=== PATIENT | male | born 1965 | race Caucasian/White ===

== ENCOUNTER 2018-06-25 08:48 | Day surgery (SDC) | payer BC ==
[2018-06-24 12:09] VITALS: BMI 32.8
[~2018-06-25 08:48] MED LIST: LACTATED RINGERS 1,000 ML IV SCH; LIDOCAINE 1% 20 ML VIAL (10MG/ML) FOR IV START INTRADERMA PRN
[2018-06-25 09:51] VITALS: RESP 16; TEMP 97.3
[2018-06-25] MEDS ORDERED: PROPOFOL 10 MG/ML 20 ML VIAL IV ONE (10:19)
[2018-06-25] MEDS ORDERED: LIDOCAINE 1% INJ 10MG/ML (20 ML MDV) ONE (10:19)
--- NOTE | 2018-06-25 10:20 | P.GSHP ---
History of Present Illness H&P Date: 06/25/18 Chief Complaint: History of colon polyps This is a 52-year-old male who presents today for colonoscopy. Patient's previous history of colon polyps. Past Medical History Past Medical History: Cancer, CVA/TIA, Hyperlipidemia, Hypertension Additional Past Medical History / Comment(s): HX SKIN CA, NO RESIDUAL EFFECTS FROM CVA-2008 approx History of Any Multi-Drug Resistant Organisms: None Reported Past Surgical History: No Surgical Hx Reported Past Anesthesia/Blood Transfusion Reactions: No Reported Reaction Additional Past Anesthesia/Blood Transfusion Reaction / Comment(s): no hx blood transfusion Smoking Status: Never smoker - Past Family History Mother Family Medical History: No Reported History Medications and Allergies Home Medications Medication Instructions Recorded Confirmed Type Atorvastatin [Lipitor] 10 mg PO HS 03/24/15 06/25/18 History Lisinopril [Zestril] 20 mg PO QAM 03/24/15 06/25/18 History Metoprolol Tartrate [Lopressor] 100 mg PO BID 03/24/15 06/25/18 History NIFEdipine [Procardia XL] 90 mg PO QAM 03/24/15 06/25/18 History buPROPion XL [Wellbutrin XL] 150 mg PO BID 03/24/15 06/25/18 History Allergies Allergy/AdvReac Type Severity Reaction Status Date / Time No Known Allergies Allergy Verified 06/25/18 09:56 Surgical - Exam Vital Signs Temp Pulse Resp BP Pulse Ox 97.3 F L 55 L 16 117/65 96 06/25/18 09:48 06/25/18 09:48 06/25/18 09:48 06/25/18 09:48 06/25/18 09:48 - General well developed, well nourished, no distress - Eyes PERRL - ENT normal pinna - Neck no masses - Respiratory normal expansion - Cardiovascular Rhythm: regular - Abdomen Abdomen: soft, non tender Assessment and Plan Assessment: History: Polyps. We'll perform colonoscopy.
--- NOTE | 2018-06-25 10:37 | P.OP ---
Date of Procedure: 06/25/18 Preoperative Diagnosis: History of colon polyps Postoperative Diagnosis: Colonic polyps of right colon and transverse colon Procedure(s) Performed: Colonoscopy Anesthesia: MAC Surgeon: Martell Ring Pathology: other (Right and transverse colon polyps) Condition: stable Disposition: PACU Description of Procedure: The patient's placed on the endoscopy table in the lateral position. He received IV sedation. Digital rectal exam was performed which revealed no rebound. The prostate was symmetric without nodules. The flexible colonoscope was then placed patient anus and passed throughout the entire colon. The ileocecal valve lesions. The cecum was examined. This appeared normal. In the right colon there was a sessile polyp. This was removed with the cold forcep. Scope was then brought back into the proximal transverse colon there were several polyps seen was removed with snare. Scope was withdrawn the remainder of the transverse colon descending colon and sigmoid colon appeared normal. Scope was then brought back the rectum and this appeared normal. Scope was withdrawn for patient.
[2018-06-25 11:14] VITALS: BP 109/64; PULSE 55
== END 2018-06-25 11:43 | disposition home or self-care (01) ==
LOC: ORWHC2ENDO 08:48
PROVIDERS: ATTEND Surgery
DX: Z12.11 Encounter for screening for malignant neoplasm of colon (principal); D12.2 Benign neoplasm of ascending colon; D12.3 Benign neoplasm of transverse colon; Z86.010 Personal history of colon polyps; E78.5 Hyperlipidemia, unspecified; I10 Essential (primary) hypertension; F32.9 Major depressive disorder, single episode, unspecified; Z79.899 Other long term (current) drug therapy; Z86.73 Personal history of transient ischemic attack (TIA), and cerebral infarction without residual deficits; Z85.828 Personal history of other malignant neoplasm of skin
CPT/HCPCS: 88305; 45380; 45385; J2001; J2704

== ENCOUNTER → 2019-05-11 | Outpatient (CLI) | payer BC | END | disposition home or self-care (01) | LOC: LABWHC1 16:42 | PROVIDERS: ATTEND Urology | DX: C61 Malignant neoplasm of prostate (principal) | CPT/HCPCS: 36415; 84153 ==

== ENCOUNTER → 2019-11-20 | Outpatient (CLI) | payer BC | END | disposition home or self-care (01) | LOC: LABWHC1 12:44 | PROVIDERS: ATTEND Urology | DX: C61 Malignant neoplasm of prostate (principal) | CPT/HCPCS: 36415; 84153 ==

== ENCOUNTER → 2019-12-07 | Outpatient (CLI) | payer BC ==
--- NOTE | 2019-12-07 16:48 | XR ---
EXAMINATION TYPE: XR lumbosacral spine min 4V DATE OF EXAM: 12/07/2019 CLINICAL HISTORY: Prostate cancer TECHNIQUE: Frontal, lateral, and oblique images of the lumbar spine are obtained. COMPARISON: MRI lumbar spine 03/09/2011 FINDINGS: There are 5 lumbar type vertebral bodies identified. The lumbar spine shows satisfactory a lignment without evidence of acute fracture or dislocation. Vertebral body heights are within normal limits. There is no evidence of focal osteoblastic lesion. Multilevel facet arthropathy and anterior osteophytic spurring of the endplates. Mild disc space narrowing at L5-S1. The oblique images demonst rate no evidence of spondylolysis. No spondylolisthesis. 3 mm calcific densities overlapping the bilateral renal shadows may represent nephrolithiasis. IMPRESSION: 1. No evidence of osteoblastic lesion in the lumbar spine. 2. Multilevel degenerative disc disease and facet arthropathy. 3. 3 mm calcifications overlapping the bilateral renal shadows may represent nephrolithiasis.
== END | disposition home or self-care (01) ==
LOC: RADXRMAIN 08:03
PROVIDERS: ATTEND Urology
DX: M51.37 Other intervertebral disc degeneration, lumbosacral region (principal); M47.817 Spondylosis without myelopathy or radiculopathy, lumbosacral region; C61 Malignant neoplasm of prostate
CPT/HCPCS: 72110

== ENCOUNTER → 2020-05-30 | Outpatient (CLI) | payer BC | END | disposition home or self-care (01) | LOC: LABWHC1 11:24 | PROVIDERS: ATTEND Urology | DX: C61 Malignant neoplasm of prostate (principal) | CPT/HCPCS: 36415; 84153 ==

== ENCOUNTER → 2020-06-06 | Outpatient (CLI) | payer BC | END | disposition home or self-care (01) | LOC: RADMRIMAIN 06:52 | PROVIDERS: ATTEND Urology | DX: Z53.9 Procedure and treatment not carried out, unspecified reason (principal) ==

== ENCOUNTER → 2020-06-16 | Outpatient (CLI) | payer BC ==
--- NOTE | 2020-06-21 07:14 | MR ---
EXAMINATION TYPE: MR Prostate wo/w con DATE OF EXAM: 06/16/2020 COMPARISON: None. IMAGE QUALITY: Good. INDICATION: Prostate cancer. PSA: 1.4 ng/ml on May 30, 2010 Recent Biopsy and Date: May 23, 2019 Pathology Report (If Applicable): Adriel score 3+4 = 7, location not provided TECHNIQUE: Examination was performed using a 3T MRI without an endorectal coil. Multiparametric imaging was perf ormed with T2 mutliplanar sequences, axial diffusion weighted imaging and dynamic contrast enhanced i maging, utilizing 9.5 mL intravenous Gadavist gadolinium contrast. FINDINGS: There is no clinically significant cancer identified. PROSTATE VOLUME: 4.8 cm SI x 4.3 cm AP x 4.8 cm LR Vol= 51.9 cc PSA DENSITY: 0.03 ng/ml/cc Predicted PSA = 6.23 Peripheral zone appears within normal limits on DWI/ADC imaging. Central transitional zone shows overall heterogeneity without suspicious areas of diminished T2 signa l. Capsule is maintained. Seminal vesicles symmetric and felt within normal limits. No adjacent adenopat hy. Bladder not greatly distended, there is mild wall thickening and trabeculation. No suspicious groin hernia or adenopathy. Visualized osseous structures are intact. No suspicious bow el dilatation. IMPRESSION: A focus of clinically significant cancer is not identified. Highest Assessment Category: 1 MRI Stage: T1c N0 M0 based on review of pelvic images. False negative rates for MRI range from 5-20% depending on risk profile. Assessment Categories: 1 ? Very low (clinically significant cancer is highly unlikely to be present) 2 ? Low (clinically significant cancer is unlikely to be present) 3 ? Intermediate (the presence of clinically significant cancer is equivocal) 4 ? High (clinically significant cancer is likely to be present) 5 ? Very high (clinically significant cancer is highly likely to be present)
== END | disposition home or self-care (01) ==
LOC: RADMRIMAIN 09:40
PROVIDERS: ATTEND Urology
DX: C61 Malignant neoplasm of prostate (principal)
CPT/HCPCS: 72197; A9585

== ENCOUNTER → 2021-01-18 | Outpatient (CLI) | payer BC | END | disposition home or self-care (01) | LOC: LABWHC1 10:27 | PROVIDERS: ATTEND Urology | DX: C61 Malignant neoplasm of prostate (principal) | CPT/HCPCS: 36415; 84153 ==

== ENCOUNTER → 2021-02-24 | Outpatient (CLI) | payer BC | END | disposition home or self-care (01) | LOC: LABWHC1 13:57 | PROVIDERS: ATTEND Urology | DX: C61 Malignant neoplasm of prostate (principal) | CPT/HCPCS: 36415; 84153 ==

== ENCOUNTER → 2022-08-04 | Outpatient (CLI) | payer BC ==
--- NOTE | 2022-08-06 11:07 | MR ---
EXAMINATION TYPE: MR Prostate wo/w con DATE OF EXAM: 08/04/2022 9:12 AM COMPARISON: 06/08/2020. CLINICAL INDICATION:Male, 56 years old with history of C61 MALIGNANT NEOPLASM OF PROSTATE; TECHNIQUE: Multi-planar, multi-sequence imaging of the pelvis is performed prior to and following the uncomplicated administration of bolus intravenous gadolinium. CONTRAST: 9 Gadavist Interpretive Criteria: PI-RADS v2.1 SERUM PSA: 1.8 on 07/18/2022 1.4 on 09/28/2021 SURGICAL PATHOLOGY: * Negative biopsy on 07/03/2021. * Positive biopsy 05/18/2019 left lateral apex [place] total score 3+4 = 7 FINDINGS: Prostatic dimensions: 4.5 x 4.9 x 2.9 cm. "Bullet" Volume:41.85 (PSA density=0.04 ng/mL/mL) CENTRAL GLAND (Central and Transition Zones/CZ+TZ): Multiple bilateral, heterogenous appearing hypertrophic stromal nodules, without suspicious lesion. M edian lobe hypertrophy with protrusion into the base of the bladder. (PI-RADS 2) PERIPHERAL ZONE (PZ): Bilateral linear, indistinct wedgelike areas of low ADC, and low T2 signal, No evidence of masslike a bnormality, or localized perfusional hypervascularity, to further suggest a focus of clinically signi ficant prostate cancer. (PI-RADS 2) SEMINAL VESICLES (SV): Symmetric and unremarkable. PERIPROSTATIC TISSUES: Unremarkable. LYMPH NODES: No enlarged pelvic lymph node. REMAINING PELVIS: Bladder wall is within normal limits given distention. No abnormal free or organized intrapelvic fluid collection. No pathologic bowel dilation or mural thickening. Bilateral fat-containing inguinal hernias. OSSEOUS STRUCTURES: No suspicious osseous abnormality. IMPRESSION: 1. No specific features for high-risk prostate cancer. Maximum PI-RADS score: 2. 2. No suspicious osseous lesion. No lymphadenopathy. No evidence of prostate adenocarcinoma involving the periprostatic tissues.
== END | disposition home or self-care (01) ==
LOC: RADMRIMAIN 08:10
PROVIDERS: ATTEND Urology
DX: C61 Malignant neoplasm of prostate (principal)
CPT/HCPCS: 72197; A9585

== ENCOUNTER → 2023-08-23 | Outpatient (CLI) | payer BC | END | disposition home or self-care (01) | LOC: LABWHC1 10:16 | PROVIDERS: ATTEND Urology | DX: C61 Malignant neoplasm of prostate (principal) | CPT/HCPCS: 36415; 84153 ==

== ENCOUNTER → 2024-03-12 | Outpatient (CLI) | payer BC | END | disposition home or self-care (01) | LOC: LABWHC1 07:04 | PROVIDERS: ATTEND Urology | DX: C61 Malignant neoplasm of prostate (principal) | CPT/HCPCS: 36415; 84153 ==

== ENCOUNTER → 2024-05-29 | Outpatient (CLI) | payer BC ==
--- NOTE | 2024-05-29 17:26 | CA ---
Transthoracic Echo Report Name: Soto Kwan Age: 58 Gender: M : 1965 Exam Date: 05/29/2024 15:41 Exam Location: [facility] Ht (in): 67 Wt (lb): 200 Ordering Physician: Doc Valera DO Attending/Referring Phys: Kassie Pryor NPC Client Reporting Associate Tonya Oneill RDCS Procedure CPT: Indications: R01.1 Murmur Cardiac Hx: Technical Quality: Fair Contrast 1: Total Dose (mL): Contrast 2: Total Dose (mL): MEASUREMENTS (Male / Female) Normal Values 2D ECHO LV Diastolic Diameter PLAX 4.8 cm 4.2 - 5.9 / 3.9 - 5.3 cm LV Systolic Diameter PLAX 2.8 cm IVS Diastolic Thickness 1.1 cm 0.6 - 1.0 / 0.6 - 0.9 cm LVPW Diastolic Thickness 1.1 cm 0.6 - 1.0 / 0.6 - 0.9 cm LV Relative Wall Thickness 0.5 RV Internal Dim ED PLAX 5.0 cm LVOT Diameter 1.9 cm LV Diastolic Volume MOD BP 133.4 cm??? 67 - 155 / 56 - 104 cm??? LV Systolic Volume MOD BP 54.4 cm??? 22 - 58 / 19 - 49 cm??? LV Ejection Fraction MOD BP 59.3 % >= 55 % LV Cardiac Index MOD BP 2786.4 cm???/min???m??? LV Diastolic Volume MOD 4C 150.4 cm??? LV Systolic Volume MOD 4C 65.3 cm??? LV Ejection Fraction MOD 4C 56.6 % LV Cardiac Index MOD 4C 3001.0 cm???/min???m??? LV Diastolic Length 4C 9.1 cm LV Systolic Length 4C 7.8 cm LV Diastolic Volume MOD 2C 112.6 cm??? LV Systolic Volume MOD 2C 43.8 cm??? LV Ejection Fraction MOD 2C 61.1 % LV Cardiac Index MOD 2C 2426.5 cm???/min???m??? LV Diastolic Length 2C 8.6 cm LV Systolic Length 2C 7.6 cm LA Volume 76.6 cm??? 18 - 58 / 22 - 52 cm??? LA Volume Index 36.5 cm???/m??? 16 - 28 cm???/m??? M-MODE Aortic Root Diameter MM 3.0 cm LA Systolic Diameter MM 4.5 cm LA Ao Ratio MM 1.5 AV Cusp Separation MM 2.0 cm DOPPLER AV Peak Velocity 207.0 cm/s AV Peak Gradient 17.1 mmHg AV Mean Velocity 136.1 cm/s AV Mean Gradient 8.8 mmHg AV Velocity Time Integral 41.4 cm LVOT Peak Velocity 148.8 cm/s LVOT Peak Gradient 8.9 mmHg LVOT Velocity Time Integral 32.8 cm LVOT Stroke Volume 92.1 cm??? LVOT Stroke Volume Index 45.6 ml/m??? LVOT Cardiac Index 3246.4 cm???/min???m??? AV Area Cont Eq vti 2.2 cm??? AV Area Cont Eq pk 2.0 cm??? MV Area PHT 4.4 cm??? Mitral E Point Velocity 121.6 cm/s Mitral A Point Velocity 88.1 cm/s Mitral E to A Ratio 1.4 MV Deceleration Time 170.9 ms MV E' Velocity 5.9 cm/s Mitral E to MV E' Ratio 20.8 TR Peak Velocity 271.1 cm/s TR Peak Gradient 29.4 mmHg FINDINGS Left Ventricle Mildly increased left ventricular wall thickness. Left ventricular cavity size normal. Normal left ventricular systolic function with no obvious regional wall motion abnormalities. Left ventricular ejection fraction is estimated at 55-60 %. Grade 1 diastolic dysfunction. Right Ventricle Right ventricular systolic pressure within normal limits.normal right ventricular size and function. Right Atrium Mild right atrial dilatation. Left Atrium Moderately increased left atrial volume. Mildly increased left atrial area. Mitral Valve Structurally normal mitral valve. Mitral valve thickened. Mild mitral annular calcification. Mild mitral regurgitation. Aortic Valve Trileaflet aortic valve. No aortic regurgitation. Mild aortic stenosis with a peak gradient of 17 mmHg and a mean gradient of 8.8 mmHg. Tricuspid Valve Structurally normal tricuspid valve. Mild tricuspid regurgitation. Pulmonic Valve Structurally normal pulmonic valve. Pericardium No pericardial effusion. Aorta Normal size aortic root and proximal ascending aorta. CONCLUSIONS LVEF 55 to 60% No obvious regional wall motion abnormality Mild concentric LVH Mild mitral regurgitation Calcified aortic valve with mild aortic stenosis Normal RV size and systolic function with RVSP around 35 mmHg Previewed by: Dr Chuck Perdomo (Electronically Signed) Final Date: 29 May 2024 17:24
== END | disposition home or self-care (01) ==
LOC: RADECHMAIN 15:39
PROVIDERS: ATTEND Family Medicine
DX: I08.0 Rheumatic disorders of both mitral and aortic valves (principal); R01.1 Cardiac murmur, unspecified
CPT/HCPCS: 93306

== ENCOUNTER → 2024-08-14 | Outpatient (CLI) | payer BC ==
[2024-08-14 19:08] LABS: Prostate Specific Antigen 2.35 ng/mL (0.000-4.500)
== END ==
LOC: LABWHC1 11:13
PROVIDERS: ATTEND Urology
DX: C61 Malignant neoplasm of prostate (principal); E11.40 Type 2 diabetes mellitus with diabetic neuropathy, unspecified; Z79.899 Other long term (current) drug therapy
CPT/HCPCS: 36415; 82607; 82746; 84153; 86780

== ENCOUNTER → 2024-08-27 | Outpatient (CLI) | payer BC ==
--- NOTE | 2024-08-27 15:50 | CT ---
EXAMINATION TYPE: CT facial bones wo con DATE OF EXAM: 08/27/2024 COMPARISON: CLINICAL INDICATION: Male, 58 years old with history of S06.2XAS TRAUMATIC HEMORRHAGE R41.3 MEM LOSS R93.0; [facility], Brain bleed x 15 years ago, lesion found on frontal bone during prior MRI Brain. TECHNIQUE: CT scan of the sinuses is performed without contrast, axial images are obtained, coronal reformatted images are also reviewed. CT DLP: 764.[address] CTDI: mGy Automated exposure control for dose reduction was used. FINDINGS: The facial bones are intact. There are no focal osseous abnormalities. There is near complete opacification of the left maxillary sinus and there is obstruction of the left ostiomeatal complex. There is mild mucosal thickening in the right maxillary sinus and the right ostiomeatal complex is pa tent. There is minimal mucosal thickening in the frontal and ethmoid sinuses. The sphenoid sinuses are well aerated. The mastoid air cells and middle ear cavities are well aerated. IMPRESSION: 1. No facial bone fracture or focal intraosseous abnormality. 2. Mild chronic sinusitis of the frontal, ethmoid and right maxillary sinus. 3. obstructed left ostiomeatal complex and complete opacification of the left maxillary sinus. [facility], , 08/27/2024 3:47 PM
== END | disposition home or self-care (01) ==
LOC: RADCTMAIN 15:08
PROVIDERS: ATTEND Psychiatry & Neurology Neurology
DX: S06.2XAS Diffuse traumatic brain injury with loss of consciousness status unknown, sequela (principal); R41.3 Other amnesia; R93.0 Abnormal findings on diagnostic imaging of skull and head, not elsewhere classified; J32.2 Chronic ethmoidal sinusitis; J32.0 Chronic maxillary sinusitis; J34.89 Other specified disorders of nose and nasal sinuses
CPT/HCPCS: 70486

== ENCOUNTER → 2024-10-08 | Outpatient (CLI) | payer BC ==
--- NOTE | 2024-10-08 08:05 | US ---
EXAMINATION TYPE: US abdomen complete DATE OF EXAM: 10/08/2024 COMPARISON: NONE CLINICAL INDICATION: Male, 59 years old with history of R10.11 RUQ PAIN; Pain TECHNIQUE: Grayscale and color Doppler imaging of the abdomen was performed. FINDINGS: EXAM MEASUREMENTS: Liver Length: 13.8 cm Gallbladder Wall: .3 cm CBD: .3 cm, color Doppler imaging was utilized to isolate the common bile duct for measurement. Spleen: 11 cm Right Kidney: 10.3 x 4.9 x 4.2 cm Left Kidney: 10.7 x 4.2 x 4.2 cm Pancreas: Only a small portion of the pancreatic neck is seen. Remainder is obscured by bowel gas sh adowing. Liver: wnl, no dilated ducts, masses or cysts. Gallbladder: Multiple tiny stones layer dependently. No abnormal distention, wall thickening, or marlene rounding fluid. Evidence for sonographic Cruz's sign: no CBD: wnl Spleen: wnl Right Kidney: Suggestion of renal cortical thinning. wnl, No hydronephrosis, calculi or masses seen Left Kidney: Suggestion of renal cortical thinning. wnl, No hydronephrosis, calculi or masses seen Upper IVC: wnl Abd Aorta: wnl IMPRESSION: 1. Suggestion of small layering gallstones. No findings of acute cholecystitis. No biliary ductal dil atation. 2. Renal cortical thinning suggesting bilateral chronic medical renal disease. [facility], Workstation: [id number] MaterialGERARDO, 10/08/2024 8:03 AM
== END | disposition home or self-care (01) ==
LOC: RADUSWWP 07:06
PROVIDERS: ATTEND Family Medicine
DX: R10.11 Right upper quadrant pain (principal)
CPT/HCPCS: 76700

== ENCOUNTER 2024-11-16 00:56 | Emergency (ER) | payer BC ==
--- NOTE | 2024-11-16 01:15 | ED ---
Abdominal Pain HPI - General Chief Complaint: Abdominal Pain Stated Complaint: Abd Pain Time Seen by Provider: 11/16/24 01:13 Source: patient, RN notes reviewed Mode of arrival: ambulatory Limitations: no limitations - History of Present Illness Initial Comments: This is a 59-year-old male with history including CVA and skin CA presenting with for RUQ abdominal pain (5) since 1999 last night. Patient states pain is constant and radiates to his right flank. Also endorses recent constipation. Denies fever, chills, chest pain, dyspnea, N/V/D, dysuria, hematuria. Denies [id number] medication use prior to arrival. MD Complaint: abdominal pain Onset/Timin -: hour(s) Time: 20:00 Location: RUQ Radiation: R flank Migration to: no migration Severity scale (1-10): 5 Quality: cramping Consistency: constant Associated Symptoms: constipation - Related Data Home Medications Medication Instructions Recorded Confirmed Atorvastatin [Lipitor] 10 mg PO HS 03/24/15 06/25/18 Metoprolol Tartrate [Lopressor] 100 mg PO BID 03/24/15 06/25/18 NIFEdipine [Procardia XL] 90 mg PO QAM 03/24/15 06/25/18 buPROPion XL [Wellbutrin XL] 150 mg PO BID 03/24/15 06/25/18 lisinopriL [Zestril] 20 mg PO QAM 03/24/15 06/25/18 Previous Rx's Medication Instructions Recorded Docusate Calcium 240 mg PO DAILY PRN #10 capsule 11/16/24 Allergies Allergy/AdvReac Type Severity Reaction Status Date / Time No Known Allergies Allergy Verified 11/16/24 01:01 Review of Systems ROS Statement: Those systems with pertinent positive or pertinent negative responses have been documented in the HPI. ROS Other: All systems not noted in ROS Statement are negative. Past Medical History Past Medical History: Cancer, CVA/TIA, Hyperlipidemia, Hypertension Additional Past Medical History / Comment(s): HX SKIN CA, NO RESIDUAL EFFECTS FROM CVA-2008 approx History of Any Multi-Drug Resistant Organisms: None Reported Past Surgical History: No Surgical Hx Reported Past Anesthesia/Blood Transfusion Reactions: No Reported Reaction Additional Past Anesthesia/Blood Transfusion Reaction / Comment(s): no hx blood transfusion Past Psychological History: Depression Past Alcohol Use History: Rare Past Drug Use History: None Reported - Past Family History Mother Family Medical History: No Reported History General Exam Limitations: no limitations General appearance: alert, in no apparent distress Head exam: Present: atraumatic, normocephalic, normal inspection Eye exam: Present: normal appearance, PERRL, EOMI. Absent: scleral icterus, conjunctival injection, periorbital swelling ENT exam: Present: normal exam, mucous membranes moist Neck exam: Present: normal inspection. Absent: tenderness, meningismus, lymphadenopathy Respiratory exam: Present: normal lung sounds bilaterally. Absent: respiratory distress, wheezes, rales, rhonchi, stridor, accessory muscle use, decreased breath sounds, prolonged expiratory Cardiovascular Exam: Present: regular rate, normal rhythm, normal heart sounds. Absent: systolic murmur, diastolic murmur, rubs, gallop, clicks GI/Abdominal exam: Present: soft, distended, diminished bowel sounds, hypoactive bowel sounds, other (Negative Cruz sign, Rovsing, McBurney point). Absent: tenderness, guarding, rebound, rigid Extremities exam: Present: normal inspection, full ROM, normal capillary refill. Absent: tenderness, pedal edema, joint swelling, calf tenderness Back exam: Present: normal inspection Neurological exam: Present: alert, oriented X3, CN II-XII intact Psychiatric exam: Present: normal affect, normal mood Skin exam: Present: warm, dry, intact, normal color. Absent: rash Course Vital Signs 11/16/24 11/16/24 00:58 01:15 Temperature 98.1 F 98.5 F Pulse Rate 78 76 Respiratory 18 16 Rate Blood Pressure 163/85 150/79 O2 Sat by Pulse 97 97 Oximetry Medical Decision Making - Medical Decision Making Was pt. sent in by a medical professional or institution (, PA, OIL BURNER JOURNEYMAN, urgent care, hospital, or detention...) When possible be specific @ -[No] Did you speak to anyone other than the patient for history (EMS, parent, family, police, friend...)? What history was obtained from this source @ -[No] Did you review nursing and triage notes (agree or disagree)? Why? @ -[I reviewed and agree with nursing and triage notes] Were old charts reviewed (outside hosp., previous admission, EMS record, old EKG, old radiological studies, urgent care reports/EKG's, detention records)? Report findings @ -[No old charts were reviewed] Differential Diagnosis (chest pain, altered mental status, abdominal pain women, abdominal pain men, vaginal bleeding, weakness, fever, dyspnea, syncope, headache, dizziness, GI bleed, back pain, seizure, CVA, palpatations, mental hea lth, musculoskeletal)? @ -Differential Abdominal Pain Men: Appendicitis, cholecystitis, diverticulosis, ischemic bowel, pancreatitis, hepatitis, UTI, gastroenteritis, AAA, incarcerated hernia, bowel obstruction, constipation, inflammatory bowel, hepatitis, peptic ulcer disease, splenic infarction, perforated viscus, testicular torsion, this is not meant to be an all-inclusive list EKG interpreted by me (3pts min.). @ -Not done X-rays interpreted by me (1pt min.). @ -[None done] CT interpreted by me (1pt min.). @ -[None done] U/S interpreted by me (1pt. min.). @ -[None done] What testing was considered but not performed or refused? (CT, X-rays, U/S, labs)? Why? @ -Gallbladder ultrasound considered due to history of Breanna lithiasis and elevated alkaline phosphatase but ultrasound is not available till 0700 this morning and patient did not wish to wait in ER until that time. What meds were considered but not given or refused? Why? @ -[None] Did you discuss the management of the patient with other professionals (professionals i.e. , PA, OIL BURNER JOURNEYMAN, lab, RT, psych nurse, social science teacher, inhalation therapy aide, teacher, chief sustainability officer, bottle caser)? Give summary @ -[No] Was smoking cessation discussed for >3mins.? @ -[No] Was critical care preformed (if so, how long)? @ -[No] Were there social determinants of health that impacted care today? How? (Homelessness, low income, unemployed, alcoholism, drug addiction, transportation, low edu. Level, literacy, decrease access to med. care, prison, rehab)? @ -[No] Was there de-escalation of care discussed even if they declined (Discuss DNR or withdrawal of care, Hospice)? DNR status @ -[No] What co-morbidities impacted this encounter? (DM, HTN, Smoking, COPD, CAD, Cancer, CVA, ARF, Chemo, Hep., AIDS, mental health diagnosis, sleep apnea, morbid obesity)? @ -[None] Was patient admitted / discharged? Hospital course, mention meds given and route, prescriptions, significant lab abnormalities, going to OR and other pertinent info. @ -[hospital course] Undiagnosed new problem with uncertain prognosis? @ -[No] Drug Therapy requiring intensive monitoring for toxicity (Heparin, Nitro, Insulin, Cardizem)? @ -[No] Were any procedures done? @ -[No] Diagnosis/symptom? @ -Constipation Acute, or Chronic, or Acute on Chronic? @ -Acute Uncomplicated (without systemic symptoms) or Complicated (systemic symptoms)? @ -Uncomplicated Side effects of treatment? @ -[No] Exacerbation, Progression, or Severe Exacerbation? @ -[No] Poses a threat to life or bodily function? How? (Chest pain, [place], [place], pneumonia, PE, COPD, DKA, ARF, appy, cholecystitis, CVA, Diverticulitis, Homicidal, Suicidal, threat to staff... and all critical care pts) @ -[No] - Lab Data Result diagrams: 11/16/24 01:15 11/16/24 01:15 Lab Results 11/16/24 11/16/24 11/16/24 Range/Units 01:15 01:15 01:31 WBC 8.56 (4.50-10.00) 10*3/uL RBC 5.40 (4.40-5.60) 10*6/uL Hgb 15.7 (13.0-17.0) g/dL Hct 45.2 (39.6-50.0) % MCV 83.7 (80.0-97.0) fL MCH 29.1 (27.0-32.0) pg MCHC 34.7 (32.0-37.0) g/dL Plt Count 341 (140-440) 10*3/uL MPV 8.9 L (9.5-12.2) fL Immature Gran % (Auto) 0.2 % Neutrophils % 59.9 % Lymphocytes % 24.4 % Monocytes % 11.1 % Eosinophils % 3.3 % Basophils % 1.1 % Immature Gran # 0.02 (0.00-0.04) 10*3/uL Neutrophils # 5.13 (1.80-7.70) 10*3/uL Lymphocytes # 2.09 (0.90-5.00) 10*3/uL Monocytes # 0.95 (0.20-1.00) 10*3/uL Eosinophils # 0.28 (0.04-0.35) 10*3/uL Basophils # 0.09 (0.00-0.10) 10*3/uL Sodium 139 (137-145) mmol/L Potassium 3.7 (3.5-5.1) mmol/L Chloride 101 (98-107) mmol/L Carbon Dioxide 24 (22-30) mmol/L Anion Gap 14 mmol/L BUN 17 (9-20) mg/dL Creatinine 1.26 H (0.66-1.25) mg/dL Est GFR (CKD-EPI)AfAm 71 (>60 ml/min/1.73 sqM) Est GFR (CKD-EPI)NonAf 61 (>60 ml/min/1.73 sqM) Glucose 176 H (74-99) mg/dL Calcium 9.7 (8.4-10.2) mg/dL Total Bilirubin 0.5 (0.2-1.3) mg/dL AST 27 (17-59) U/L ALT 22 (4-49) U/L Alkaline Phosphatase 167 H (38-126) U/L Total Protein 8.1 (6.3-8.2) g/dL Albumin 4.8 (3.5-5.0) g/dL Lipase 69 (23-300) U/L Urine Color Colorless Urine Appearance Clear (Clear) Urine pH 6.5 (5.0-8.0) Ur Specific [place]worth 1.014 (1.001-1.035) Urine Protein Negative (Negative) Urine Glucose (UA) Negative (Negative) Urine Ketones Negative (Negative) Urine Blood Negative (Negative) Urine Nitrite Negative (Negative) Urine Bilirubin Negative (Negative) Urine Urobilinogen <2.0 (<2.0) mg/dL Ur Leukocyte Esterase Negative (Negative) Disposition Clinical Impression: Constipation Disposition: HOME SELF-CARE Condition: Good Instructions (If sedation given, give patient instructions): Constipation (ED), High Fiber Diet (ED) Additional Instructions: Increase intake of water, prune juice and soluble/insoluble fiber. Follow-up with primary care for any ongoing symptoms. Return to ER for abdominal pain should worsen. Prescriptions: Docusate Calcium 240 mg PO DAILY PRN #10 capsule PRN Reason: Constipation Is patient prescribed a controlled substance at d/c from ED?: No Referrals: Doc Valera DO [Primary Care Provider] - 1-2 days Time of Disposition: 02:19
[2024-11-16 01:22] LABS: Basophils # (A) 0.09 10*3/uL (0.00-0.10); Basophils % (A) 1.1 %; Eosinophils # (A) 0.28 10*3/uL (0.04-0.35); Eosinophils % (A) 3.3 %; HCT 45.2 % (39.6-50.0); HGB 15.7 g/dL (13.0-17.0); Lymphocytes # (A) 2.09 10*3/uL (0.90-5.00); Lymphocytes % (A) 24.4 %; MCH 29.1 pg (27.0-32.0); MCHC 34.7 g/dL (32.0-37.0); MCV 83.7 fL (80.0-97.0); Mean Platelet Volume 8.9 fL (9.5-12.2); Monocytes # (A) 0.95 10*3/uL (0.20-1.00); Monocytes % (A) 11.1 %; Neutrophils # (A) 5.13 10*3/uL (1.80-7.70); Neutrophils % (A) 59.9 %; Platelet Count 341 10*3/uL (140-440); RDW 13.3 % (11.5-14.5); WBC 8.56 10*3/uL (4.50-10.00)
[2024-11-16] MEDS: SODIUM CHLORIDE 0.9% 1,000 ML IV STA (01:23)
[2024-11-16 01:31] LABS: ALT 22 U/L (4-49); AST 27 U/L (17-59); African American GFR (CKD) 71 (>60 ml/min/1.73 sqM); Albumin 4.8 g/dL (3.5-5.0); Alkaline Phosphatase 167 U/L (38-126); Anion Gap 14 mmol/L; Blood Urea Nitrogen 17 mg/dL (9-20); Calcium 9.7 mg/dL (8.4-10.2); Carbon Dioxide 24 mmol/L (22-30); Chloride 101 mmol/L (98-107); Glucose 176 mg/dL (74-99); Lipase 69 U/L (23-300); Non-African American GFR(CKD) 61 (>60 ml/min/1.73 sqM); Potassium 3.7 mmol/L (3.5-5.1); Sodium 139 mmol/L (137-145); Total Bilirubin 0.5 mg/dL (0.2-1.3); Total Protein 8.1 g/dL (6.3-8.2)
[2024-11-16 02:07] LABS: Appearance,Urine Clear (Clear); Bilirubin,Urine Negative (Negative); Blood,Urine Negative (Negative); Color,Urine Colorless; Glucose,Urine (UA) Negative (Negative); Ketones,Urine Negative (Negative); Leukocyte Esterase,Urine Negative (Negative); Nitrite,Urine Negative (Negative); PH, Urine 6.5 (5.0-8.0); Protein,Urine Negative (Negative); Specific Gravity,Urine 1.014 (1.001-1.035); Urobilinogen,Urine <2.0 mg/dL (<2.0)
[2024-11-16 02:58] VITALS: BP 145/76; PULSE 70; RESP 18; TEMP 98.2
[2024-11-16] MEDS: MAGNESIUM CITRATE 296 ML BOTTLE PO ONE (03:00)
[2024-11-16] MEDS: NA PHOS,M-B/NA PHOS,DI-BA 133 ML ENEMA RECTAL STA (03:00)
--- NOTE | 2024-11-16 03:17 | XR ---
EXAM: XR Abdomen, 1 View CLINICAL HISTORY: Pt coming in for URQ ABD pain and right flank pain. Constipation. Pt states that this started at around 1900 last night. TECHNIQUE: Frontal upright view of the abdomen/pelvis. 2 images COMPARISON: No relevant prior studies available. FINDINGS: Gastrointestinal tract: Moderate to large amount of stool throughout the colon. Small bowel is poorly seen. Bones/joints: No acute findings. IMPRESSION: Moderate to large amount of stool throughout the colon.
== END 2024-11-16 03:00 | disposition home or self-care (01) ==
LOC: EC 00:56
DX: K59.00 Constipation, unspecified (principal)
CPT/HCPCS: 36415; 74018; 80053; 81003; 83690; 85025; 99284

== ENCOUNTER → 2024-12-01 | Outpatient (CLI) | payer BC ==
--- NOTE | 2024-12-01 08:31 | MR ---
EXAMINATION TYPE: MR Prostate wo/w con DATE OF EXAM: 12/01/2024 7:44 AM COMPARISON: MRI 08/04/2022, 06/16/2020. CLINICAL INDICATION: Male, 59 years old with history of C61 PROSTATE CANCER; HX Prostate ca x 10-year s, F/u scan every other year TECHNIQUE: Multi-planar, multi-sequence imaging of the pelvis is performed prior to and following the uncomplicated administration of bolus intravenous gadolinium. IV Contrast: 10 mL Gadobutrol Interpretive Criteria: PI-RADS v2.1 SERUM PSA: 08/2014=1.3 07/2024=2.35 SURGICAL PATHOLOGY: No data available. FINDINGS: Prostatic dimensions: 4.9 x 5.8 x 3.8 cm. Ellipsoid Volume:56.55 (PSA density=0.04 ng/mL/mL) CENTRAL GLAND (Central and Transition Zones/CZ+TZ): Multiple bilateral, heterogenous appearing hypertrophic stromal nodules, without suspicious lesion. M edian lobe hypertrophy with protrusion into the base of the bladder. (PI-RADS 2) PERIPHERAL ZONE (PZ): Bilateral linear, indistinct wedgelike areas of low ADC, and low T2 signal, No evidence of masslike a bnormality, or localized perfusional hypervascularity, to further suggest a focus of clinically signi ficant prostate cancer. (PI-RADS 2) SEMINAL VESICLES (SV): Symmetric and unremarkable. PERIPROSTATIC TISSUES: Unremarkable. LYMPH NODES: No enlarged pelvic lymph node. REMAINING PELVIS: Bladder wall is within normal limits given distention. No abnormal free or organized intrapelvic fluid collection. No pathologic bowel dilation or mural thickening. Bilateral fat containing inguinal hernias. At the sigmoid/rectal junction there is a 10 mm and is felt to be polyp off the nondependent portion of the wall on the left. OSSEOUS STRUCTURES: No suspicious osseous abnormality. Degeneration changes with subchondral cystic change in the hips. IMPRESSION: 1. No specific features for high-risk prostate cancer. Maximum PI-RADS score: 2. 2. Moderate BPH, estimated gland volume 56.55 (PSA density=0.04 ng/mL/mL) 3. No suspicious osseous lesion. No lymphadenopathy. No evidence of prostate adenocarcinoma involving the periprostatic tissues. 4. Rectal/sigmoid colon left lateral polyp measuring up to 10 mm. Colonoscopy recommended. [facility], , 12/01/2024 8:28 AM [facility], , 12/01/2024 8:28 AM
== END | disposition home or self-care (01) ==
LOC: RADMRIMAIN 06:53
PROVIDERS: ATTEND Urology
DX: C61 Malignant neoplasm of prostate (principal); K62.1 Rectal polyp; N40.0 Benign prostatic hyperplasia without lower urinary tract symptoms
CPT/HCPCS: 72197; A9585

== ENCOUNTER → 2024-12-02 | Outpatient (CLI) | payer BC ==
--- NOTE | 2024-12-02 14:05 | US ---
EXAMINATION TYPE: US carotid duplex BILAT DATE OF EXAM: 12/02/2024 COMPARISON: NONE CLINICAL INDICATION: Male, 59 years old with history of R41.3 MEMORY LOSS S06.2XAS INTRACRANIAL HEMOR RHAGE; Additional History: .... TECHNIQUE: Grayscale, color Doppler and spectral Doppler evaluation of the bilateral carotid systems and vertebral arteries. Indirect Doppler criteria was utilized. FINDINGS: EXAM MEASUREMENTS: RIGHT: Peak Systolic Velocity (PSV) cm/sec ----- Right CCA: 78.7 ----- Right ICA: 125.3 ----- Right ECA: 90.1 ICA/CCA ratio: 1.6 RIGHT: End Diastole cm/sec ----- Right CCA: 16.0 ----- Right ICA: 22.0 ----- Right ECA: 12.4 LEFT: Peak Systolic Velocity (PSV) cm/sec ----- Left CCA: 112.4 ----- Left ICA: 118.5 ----- Left ECA: 196.6 ICA/CCA ratio: 1.1 LEFT: End Diastole cm/sec ----- Left CCA: 22.0 ----- Left ICA: 26.7 ----- Left ECA: 31.6 VERTEBRALS (direction of flow): Right Vertebral: Antegrade Left Vertebral: Antegrade Rhythm: Normal LIGHT BULB TESTER NOTES: Slightly elevated velocity seen at Lt ECA, Bilateral plaque seen, no significant stenosis seen Color Doppler imaging shows patency with blood flow throughout the carotid artery. Spectral waveforms are within normal limits. IMPRESSION: Right: Less than 50% stenosis of the carotid bifurcation. Left: Less than 50% stenosis of the carotid bifurcation. Criteria for Assigning % of Stenosis / Diameter reduction (Estimation based on the indirect measurements of the internal carotid artery velocities (ICA PSV). 1. Normal (no stenosis)=ICA PSV < 180 cm/s: ratio < 2.0: ICA EDV<40 cm/s. 2. Less than 50% stenosis=ICA PSV < 180 cm/s: ratio < 2.0: ICA EDV<40 cm/s. 3. 50 to 69% stenosis=ICA PSV of 180 to 230 cm/s: ration 2.0 ? 4.0: ICA EDV 40-100 cm/s. PSV 125-180 cm/sec and ICA/CCA PSV Ratio ? 2.0 is also consistent with 50-69% stenosis 4. Greater than 70% stenosis to near occlusion= ICA PSV > 230 cm/s: ratio > 4.0: ICA EDV > 100 cm/s. 5. Near occlusion= ICA PSV velocities may be low or undetectable: variable ratio and ICA EDV. 6. Total occlusion=unable to detect flow. [facility], , 12/02/2024 2:03 PM
== END | disposition home or self-care (01) ==
LOC: RADUSWWP 13:07
PROVIDERS: ATTEND Psychiatry & Neurology Neurology
DX: S06.2XAS Diffuse traumatic brain injury with loss of consciousness status unknown, sequela (principal); R41.3 Other amnesia; E11.40 Type 2 diabetes mellitus with diabetic neuropathy, unspecified
CPT/HCPCS: 93880